=== PATIENT | male | born 2000 | race Caucasian/White ===

== ENCOUNTER 2023-07-30 11:22 | Outpatient (OUT) | payer BC, SELFPAY ==
[2023-07-30 11:54] LABS: Basophils Absolute Auto 0.1 10^3/uL (0.0-0.1); Basophils Percent Auto 1.1 % (0.2-2.0); Eosinophils Absolute Auto 0.2 10^3/uL (0.0-0.7); Eosinophils Percent Auto 4.8 % (0.9-7.0); Hematocrit 44.9 % (42.0-54.0); Hemoglobin 15.6 g/dL (14.0-18.0); Lymphocytes Absolute Auto 2.5 10^3/uL (1.2-3.8); Lymphocytes Percent Auto 52.2 % (20.5-60.0); Mean Corpuscular HGB Conc 34.7 g/dL (29.9-35.2); Mean Corpuscular Hemoglobin 30.2 pg (25.9-34.0); Mean Corpuscular Volume 86.8 fL (80.0-94.0); Mean Platelet Volume 8.4 fL (9.5-13.5); Monocytes Absolute Auto 0.4 10^3/uL (0.3-0.8); Monocytes Percent Auto 9.1 % (1.7-12.0); Neutrophils Absolute Auto 1.6 10^3/uL (1.4-6.5); Neutrophils Percent Auto 32.8 % (43.0-75.0); Platelet Count 243 10^3/uL (150-450); Red Blood Count 5.17 10^6/uL (4.70-6.10); Red Cell Distribution Width 12.7 % (11.0-15.0); White Blood Count 4.8 10^3/uL (4.0-11.0)
[2023-07-30 12:04] LABS: Estimated Average Glucose 97 mg/dL
[2023-07-30 12:26] LABS: Alanine Aminotransferase 20 U/L (16-63); Albumin Globulin Ratio 1.4; Albumin Level 4.6 g/dL (3.4-5.0); Alkaline Phosphatase 71 U/L (46-116); Anion Gap 13.2; Aspartate Amino Transferase 17 U/L (15-37); BUN Creatinine Ratio 13.4; Bilirubin Total 2.8 mg/dL (0.2-1.0); Carbon Dioxide 27.8 mmol/L (21.0-32.0); Chloride 103 mmol/L (98-107); Estimated GFR (African America >60 (>=60); Estimated GFR (Non-African Ame >60 (>=60); Free T3 2.35 pg/mL (2.18-3.98); Globulin 3.4 g/dL; Glucose 82 mg/dL (74-106); Sodium 140 mmol/L (136-145); Thyroid Stimulating Hormone 1.362 uIU/mL (0.358-3.740)
== END 2023-07-30 11:23 | disposition home or self-care (01) ==
LOC: LAB 11:25
PROVIDERS: PCP Family Medicine; Visit Provider Family Medicine
DX: R59.0 Localized enlarged lymph nodes (principal); R73.09 Other abnormal glucose
CPT/HCPCS: 36415; 80053; 83036; 84436; 84443; 84481; 85025

== ENCOUNTER 2023-08-02 16:42 | Outpatient (OUT) | payer BC, SELFPAY ==
[2023-08-02 17:12] LABS: Basophils Absolute Auto 0.1 10^3/uL (0.0-0.1); Basophils Percent Auto 1.1 % (0.2-2.0); Eosinophils Absolute Auto 0.2 10^3/uL (0.0-0.7); Eosinophils Percent Auto 2.7 % (0.9-7.0); Hematocrit 42.6 % (42.0-54.0); Hemoglobin 14.8 g/dL (14.0-18.0); Immature Granulocytes Abs Auto 0.02 10^3/uL (0.00-0.03); Immature Granulocytes Pct Auto 0.2 % (0.0-0.5); Lymphocytes Absolute Auto 3.1 10^3/uL (1.2-3.8); Lymphocytes Percent Auto 38.3 % (20.5-60.0); Mean Corpuscular HGB Conc 34.7 g/dL (29.9-35.2); Mean Corpuscular Hemoglobin 29.7 pg (25.9-34.0); Mean Corpuscular Volume 85.4 fL (80.0-94.0); Mean Platelet Volume 8.5 fL (9.5-13.5); Monocytes Absolute Auto 0.5 10^3/uL (0.3-0.8); Monocytes Percent Auto 6.3 % (1.7-12.0); Neutrophils Absolute Auto 4.2 10^3/uL (1.4-6.5); Neutrophils Percent Auto 51.4 % (43.0-75.0); Platelet Count 262 10^3/uL (150-450); Red Blood Count 4.99 10^6/uL (4.70-6.10); Red Cell Distribution Width 12.3 % (11.0-15.0); White Blood Count 8.2 10^3/uL (4.0-11.0)
[2023-08-02 17:22] LABS: Estimated Average Glucose 111 mg/dL; Glycohemoglobin A1C 5.5 % (4.5-6.2)
[2023-08-02 18:09] LABS: Alanine Aminotransferase 16 U/L (16-63); Albumin Globulin Ratio 1.5; Albumin Level 5.1 g/dL (3.4-5.0); Alkaline Phosphatase 73 U/L (46-116); Anion Gap 14.4; Aspartate Amino Transferase 17 U/L (15-37); BUN Creatinine Ratio 13.8; Bilirubin Total 2.3 mg/dL (0.2-1.0); Calcium 9.5 mg/dL (8.5-10.1); Carbon Dioxide 26.8 mmol/L (21.0-32.0); Chloride 98 mmol/L (98-107); Estimated GFR (African America >60 (>=60); Estimated GFR (Non-African Ame >60 (>=60); Free T3 3.18 pg/mL (2.18-3.98); Globulin 3.4 g/dL; Glucose 89 mg/dL (74-106); Potassium 3.2 mmol/L (3.5-5.1); Sodium 136 mmol/L (136-145); Thyroid Stimulating Hormone 3.148 uIU/mL (0.358-3.740); Total Protein 8.5 g/dL (6.4-8.2)
[2023-08-04 12:12] LABS: HBsAg Screen Negative (Negative); HCV Ab Non Reactive (Non Reactive); Hep A Ab, IgM Negative (Negative); Hep B Core Ab, IgM Negative (Negative)
== END 2023-08-02 16:43 | disposition home or self-care (01) ==
PROVIDERS: PCP Family Medicine; Visit Provider Family Medicine
DX: R59.0 Localized enlarged lymph nodes (principal); R73.09 Other abnormal glucose; R17 Unspecified jaundice
CPT/HCPCS: 36415; 80053; 80074; 83036; 84436; 84443; 84481; 85025

== ENCOUNTER 2023-08-11 12:15 | Outpatient (OUT) | payer BC, SELFPAY ==
[2023-08-11 12:53] LABS: Alanine Aminotransferase 23 U/L (16-63); Albumin Globulin Ratio 1.3; Albumin Level 4.5 g/dL (3.4-5.0); Alkaline Phosphatase 72 U/L (46-116); Aspartate Amino Transferase 15 U/L (15-37); Bilirubin Direct 0.2 mg/dL (0.0-0.2); Bilirubin Total 1.6 mg/dL (0.2-1.0); Globulin 3.5 g/dL
== END 2023-08-11 12:16 | disposition home or self-care (01) ==
PROVIDERS: PCP Family Medicine; Visit Provider Family Medicine
DX: R17 Unspecified jaundice (principal)
CPT/HCPCS: 36415; 80076